=== PATIENT | female | born 1960 | race Caucasian/White ===

== ENCOUNTER 2021-08-18 10:11 | Emergency (ER) | payer OTHER, SELFPAY ==
--- NOTE | ~2021-08-18 | XR_ITS ---
EXAMINATION: XR ankle RT min 3V DATE: 08/18/2021 10:48 INDICATION: Right ankle pain. Injury. TECHNIQUE: 4 views of right ankle were obtained. COMPARISON: None. FINDINGS: Bone alignment is normal. No fracture. Joint spaces are normal. There are enthesophytes at the posterior and plantar aspects of calcaneal tuberosity. There is ankle soft tissue swelling. IMPRESSION: 1. No fracture. Reviewed, dictated and finalized at location A. AT [facility] OFFICER IMPRESSION: 1. No fracture.
[2021-08-18 10:25] VITALS: BP 144/58; PULSE 82; RESP 18; TEMP 36.8; O2SAT 99
--- NOTE | 2021-08-18 10:34 | ED.LOWEXIN ---
HPI - Extremity Injury (Lower) General Chief Complaint: Nausea/Vomiting/Diarrhea Stated Complaint: twisted rt ankle, headache,nausea Time Seen by Provider: 08/18/21 10:35 Source: patient and family Mode of arrival: ambulatory History of Present Illness HPI Narrative: patient injured right ankle two weeks ago and has continued right ankle pain. no new injury patient also has URI symptoms with positive covid exposure MD complaint: ankle injury Injury: Right: ankle Related Data Home Medications Medication Instructions Recorded Confirmed [place] 2 08/18/21 amlodipine 5 mg PO DAILY 08/18/21 08/18/21 atorvastatin 20 mg PO DAILY 08/18/21 08/18/21 cholecalciferol (vitamin D3) 125 mcg PO DAILY 08/18/21 08/18/21 [Vitamin D3] lisinopril 20 mg PO DAILY 08/18/21 08/18/21 metoprolol tartrate 25 mg PO BID 08/18/21 08/18/21 sertraline 100 mg PO DAILY 08/18/21 08/18/21 Allergies Allergy/AdvReac Type Severity Reaction Status Date / Time flu vaccine Allergy Hives Uncoded 08/18/21 10:39 Review of Systems Review of Systems: CONSTITUTIONAL: Denies chills, or sweats. Reports fever and generalized body aches EYES: Denies visual changes, redness, or discharge. ENT: Denies otalgia. Reports nasal congestion runny nose and sore throat CARDIOVASCULAR: Denies chest pain, palpitations, or edema. RESPIRATORY: Denies dyspnea. Reports occasional cough GASTROINTESTINAL: Denies abdominal pain, nausea, vomiting, or diarrhea. GENITOURINARY: Denies dysuria or hematuria. SKIN: Denies rash or itching. MUSCULOSKELETAL: Denies back pain, joint pain, or myalgia. Reports generalized body aches NEUROLOGIC: Denies headache, numbness, or weakness. PSYCHIATRIC: Denies anxiety or depression. PMFSH Comments At time of signature, agree with nursing past medical, surgical, social and family history. There is no relevant family history pertinent to the presenting complaint Exam Narrative: The patient is a well-developed, well-nourished in no acute distress. SKIN: Skin is warm and dry without erythema, swelling or exudate. There is good turgor. No tenting. HEAD: Atraumatic. Normocephalic. No temporal or scalp tenderness. EYES: Moist and bright. Sclera and conjunctivae normal. No discharge. PERRLA. Extraocular motions intact. Gross visual acuity intact. EARS: Pinna is normal shape and contour. Clear external auditory canals. TM pearly monterroso with good cone of light, no erythema or suppuration. Bilateral cerumen noted no gross hearing deficit. NOSE: pink, moist mucosa with good air movement. Clear rhinorrhea without nasal flaring. Septum midline. Mouth: moist mucous membranes. THROAT; mild erythema noted to posterior oropharynx with moderate postnasal drainage. Without exudate or ulceration.. Uvula midline. Normal movement of soft palate. NECK: Supple and nontender with full range of motion without discomfort. No meningeal signs. LUNGS: Equal and bilateral breath sounds without wheezes, rales or rhonchi. CHEST: The chest wall is without retractions or use of accessory muscles. HEART: Has a regular rate and rhythm without murmur, gallops, click or rub. ABDOMEN: Soft, nontender with positive active bowel sounds. No rebound tenderness. EXTREMITIES: Without cyanosis, clubbing or edema. Equal 2+ distal pulses and 2 second capillary refill noted. ANKLE EXAM SKIN INTACT. NORMAL DP PULSE, NORMAL CAP REFILL. NORMAL SENSATION. NEUROLOGIC: alert, active, . The patient moves all extremities with normal muscle strength. Normal muscle tone is noted. Normal coordination is noted. NO focal neurological findings noted. Course Course Level of Care: Express Care Visit Vital Signs Vital signs: Vital Signs Temperature 36.8 C 08/18/21 10:25 Pulse Rate 82 08/18/21 10:25 Respiratory Rate 18 08/18/21 10:25 Blood Pressure 144/58 H 08/18/21 10:25 Pulse Oximetry 99 08/18/21 10:25 Temperature 36.8 C 08/18/21 10:25 Pulse Rate 82 08/18/21 10:25 Respiratory Ra
[2021-08-19 16:23] LABS: SARS-CoV-2 RNA PCR Negative
== END 2021-08-18 11:25 | disposition home or self-care (01) ==
PROVIDERS: Emergency Provider Nurse Practitioner Family
DX: S93.401A Sprain of unspecified ligament of right ankle, initial encounter (principal); X58.XXXA Exposure to other specified factors, initial encounter; J06.9 Acute upper respiratory infection, unspecified; Z20.822 Contact with and (suspected) exposure to COVID-19; E78.00 Pure hypercholesterolemia, unspecified; I10 Essential (primary) hypertension; Z90.722 Acquired absence of ovaries, bilateral
CPT/HCPCS: 73610; 99213; C9803; G0463; U0003; U0005

== ENCOUNTER 2025-06-27 12:33 | Emergency (ER) | payer MEDICARE, MEDICAID, SELFPAY ==
[2025-06-27 12:42] VITALS: BP 135/76; PULSE 78; RESP 20; TEMP 36.5; O2SAT 98
[2025-06-27 13:12] LABS: EDSTREPNEGPOS1 Negative (Negative)
[2025-06-27 13:16] LABS: EDCOVIDSCREEN Negative (Negative)
[2025-06-27 13:17] LABS: EDINFLUASCREEN Negative (Negative); EDINFLUBSCREEN Negative (Negative)
--- NOTE | 2025-06-27 13:36 | ED.URI ---
HPI - URI/Sore Throat General Chief Complaint: Upper Respiratory Infection Stated Complaint: Chest Congestion Time Seen by Provider: 06/27/25 13:15 Source: patient and RN notes reviewed Mode of arrival: ambulatory Limitations: no limitations History of Present Illness HPI Narrative: 65-year-old female patient presents to the [facility] complaining of upper respiratory symptoms for approximately 4 days. Patient reports cough, congestion, chest congestion, voice hoarseness, and body aches. She denies any other upper respiratory symptoms, fevers, chills, sweats, nausea, vomiting, difficulty breathing abdominal pain, chest pain, any other symptoms. Patient took Mucinex without relief. Patient reports a history of breast cancer and lung cancer states she has been remission for 2 years. Related Data Home Medications ?Medication ?Instructions ?Recorded ?Confirmed ?Last Taken ?Type [place] 2 08/18/21 Unknown History atorvastatin 20 mg tablet 20 mg PO DAILY 08/18/21 08/18/21 Unknown History cholecalciferol (vitamin D3) 125 125 mcg PO DAILY 08/18/21 08/18/21 Unknown History mcg (5,000 unit) tablet (Vitamin D3) metoprolol tartrate 25 mg tablet 25 mg PO BID 08/18/21 08/18/21 Unknown History sertraline 100 mg tablet 100 mg PO DAILY 08/18/21 08/18/21 Unknown History apixaban 5 mg tablet (Eliquis) mg 06/27/25 Unknown History glipizide 5 mg tablet mg 06/27/25 Unknown History letrozole 2.5 mg tablet mg 06/27/25 Unknown History magnesium oxide 400 mg (241.3 mg mg 06/27/25 Unknown History magnesium) tablet potassium chloride 10 mEq meq PO 06/27/25 Unknown History tablet,extended release Allergies Allergy/AdvReac Type Severity Reaction Status Date / Time Influenza Virus Vaccines Allergy Hives Verified 06/27/25 13:03 Review of Systems Review of Systems: CONSTITUTIONAL: Denies fever, chills, or sweats. Positive for body aches. EYES: Denies visual changes, redness, or discharge. ENT: Positive for voice hoarseness, congestion, sore throat. Negative for rhinorrhea or otalgia. CARDIOVASCULAR: Denies chest pain, palpitations, or edema. RESPIRATORY: Positive for cough. Negative for dyspnea. GASTROINTESTINAL: Denies abdominal pain, nausea, vomiting, or diarrhea. GENITOURINARY: Denies dysuria or hematuria. SKIN: Denies rash or itching. MUSCULOSKELETAL: Denies back pain, joint pain, or myalgia. NEUROLOGIC: Denies headache, numbness, or weakness. PSYCHIATRIC: Denies anxiety or depression. All other systems reviewed are negative, except as documented in HPI. PMFSH Comments At the time of my signature, I reviewed and agree with the nursing past medical, surgical, social, and family history. There is no relevant family history pertinent to the patient complaint. Exam Narrative: GENERAL: This is a well-nourished, well-developed adult, in no apparent distress. They are non ill-appearing, nontoxic appearing. HEAD: normocephalic, atraumatic. EYES: Sclera clear/white. Vision is grossly intact. Conjunctiva normal bilaterally. Extraocular movements intact. EARS: External ears normal, auditory canals clear and without drainage, TMs without erythema or perforation. Hearing grossly intact. NOSE: External nose normal with no obvious nasal discharge, nasal turbinates erythematous, no rhinorrhea. THROAT: Mucous membranes moist, posterior pharynx erythematous without exudate. Uvula is midline. Postnasal drip present. NECK: Neck supple, non-tender without lymphadenopathy, masses or thyromegaly. CARDIOVASCULAR: Regular rate and rhythm without murmurs, gallops, or rubs. RESPIRATORY: Clear to auscultation. Breath sounds equal bilaterally. No wheezes, rales, or rhonchi. SKIN: warm, Dry, intact with no suspicious lesions or rash, good texture and turgor. NEURO: awake, alert, and oriented to person, place and time. There were no obvious focal neurologic abnormalities. EXTREMITIES: No joint tenderness, effusion, or edema noted. BACK: Nontender without deformity. Course Course Emergency Course: Portions of this record may have been created with voice recognition software Level of Care: Express Care Visit Vital Signs Vital signs: Vital Signs Temperature 97.7 F 06/27/25 12:42 Pulse Rate 78 06/27/25 12:42 Respiratory Rate 20 06/27/25 12:42 Blood Pressure 135/76 06/27/25 12:42 Pulse Oximetry 98 06/27/25 12:42 Oxygen Delivery Room Air 06/27/25 12:42 Temperature 97.7 F 06/27/25 12:42 Pulse Rate 78 06/27/25 12:42 Respiratory Rate 20 06/27/25 12:42 Blood Pressure 135/76 06/27/25 12:42 Pulse Oximetry 98 06/27/25 12:42 Oxygen Delivery Room Air 06/27/25 12:42 MDM - URI/Sore Throat MDM Narrative Medical decision making narrative: Rapid COVID, flu, strep were negative. A throat culture is pending. Symptoms likely viral in etiology. Will give her a course of Medrol Dosepak with voice hoarseness. Discussed physical exam findings. Advised supportive measures and signs/symptoms to go to the ER. Pt is appropriate for outpt treatment and f/u. Differential Diagnosis Differential diagnosis: Likely upper respiratory infection, sinusitis, viral infection, bronchitis and pharyngitis Lab Data Attestation: I reviewed the patient's lab results. Labs: Lab Results 06/27/25 Range/Units 13:00 POC Influenza A Ag Negative (Negative) POC Influenza B Ag Negative (Negative) POC SARS CoV-2 Ag Negative (Negative) POC Grp A Strep Screen Negative (Negative) Discharge Plan Discharge Clinical Impression: Upper respiratory infection Qualifiers: URI type: acute laryngitis Qualified Code(s): J04.0 - Acute laryngitis Patient Disposition: Home Condition: Stable Instructions: Antibiotic Form, Upper Respiratory Infection (ED) Additional Instructions: Your rapid COVID, flu, rapid strep swab was negative today at [facility]. You will be notified in a few days if the culture comes back positive for strep, and appropriate antibiotics will be called in for you at that time. Your symptoms are likely due to a viral illness, which is not treated with antibiotics. Viral symptoms can be present for up to 7-10 days. Take ibuprofen as needed for fever or pain. Follow instructions on the bottle. Take Medrol Dosepak as directed. Rest and stay hydrated. Follow up with your PCP in 3-5 days if symptoms are not improving. Go to the ER immediately if you developed chest pains, unable to talk in full sentences, breathing problems, difficulty breathing or swallowing, vomiting, fevers, or any serious concerns. Patient Language: [place] Prescriptions: New methylprednisolone 4 mg tablets,dose pack See Rx Instructions .ROUTE .COMPLEX Qty: 21 0RF Rx Instructions: for 6 days No Action potassium chloride 10 mEq tablet extended release PO magnesium oxide 400 mg (241.3 mg magnesium) tablet letrozole 2.5 mg tablet glipizide 5 mg tablet Eliquis 5 mg tablet atorvastatin 20 mg tablet 20 mg PO DAILY sertraline 100 mg tablet 100 mg PO DAILY metoprolol tartrate 25 mg tablet 25 mg PO BID cholecalciferol (vitamin D3) [Vitamin D3] 125 mcg (5,000 unit) Tablet 125 mcg PO DAILY [place] 2 Follow-up/Referrals: Claudia,SURINDER Alex [Primary Care Provider, Unknown] Time of Disposition: 13:34
--- OUTSIDE RECORDS SUMMARY | 2025-06-27 21:38 | XMS_ITS | Clinical Summary ---
Author Organization [facility] Address [address] [place] [address] Care Team Providers Care Floor Covering Layer Name Role Phone Unavailable Primary Care Provider Unavailabl e Source Comments [facility],non-owned Affiliates and Associated Physician Practices is amultiple site organization consisting of ambulatory clinics and hospital sitesin [place] and [place]. This disclosure is being madepursuant to the Care Everywhere program and may not contain all information available regarding this patient. Last updated [address].[facility] Allergies Active Allergy Reactions Criticality Noted Date Comments Buspirone Nausea and/or Vomiting Medium 06/11/2016 Influenza Vaccines Diarrhea,Vomiting Medium 09/08/2017 Medications * Be aware that medications may not be up to date on this document. Alwaysverify current medications with the patient. amLODIPine (NORVASC) 5 MG tablet Take 5 mg by mouth 8 Active atorvastatin (LIPITOR) 10 MG tablet TAKE 1 TABLET BY MOUTH ONCE DAILY IN THE EVENING 8 Active [place]-3 1000 MG Take 1,000 mg by mouth Active Cholecalciferol (VITAMIN D-3) 1000 UNITS Active lisinopril (PRINIVIL; ZESTRIL) 20 MG tablet Take 20 mg by mouth 8 Active sertraline (ZOLOFT) 50 MG tablet Take 50 mg by mouth 8 Active propranolol (INDERAL) 10 MG tablet Take 10 mg by mouth 8 Active albuterol HFA (PROVENTIL;VENT CORNELL;PROAIR) 108 (90 BASE) MCG/ACT inhaler Inhale 2 puffs by mouth every 6 hours as needed for Shortness of Breath, Wheezing or Cough 1 Inhaler 8 Active benzonatate (TESSALON) 200 MG capsule Take 1 capsule by mouth 3 times daily as needed for Cough 30 capsule 8 Active Social History Tobacco Use Types Packs/Day Years Used Date Smoking Tobacco: Never Assessed Comments Unknown Sex and Gender Information Value Date Recorded Sex Assigned at Not on file Legal Sex Female 10:47 AM CDT Gender Identity Not on file Sexual Orientation Not on file Last Filed Vital Signs Vital Sign Reading Time Taken Comments Blood Pressure 126/82 04/22/2018 11:03 AM CDT Pulse 98 04/22/2018 11:03 AM CDT Temperature 37.1 C (98.8 F) 04/22/2018 11:03 AM CDT Respiratory Rate - - Oxygen Saturation 95% 04/22/2018 11:03 AM CDT Inhaled Oxygen Concentration - - Weight 90.7 kg (200 lb) 04/22/2018 11:03 AM CDT Height 165.1 cm (5' 5) 04/22/2018 11:03 AM CDT Body Mass Index 33.28 04/22/2018 11:03 AM CDT Plan of Treatment Health Maintenance Due Date Last Done Comments BONE DENSITY TESTING 1960 COLOGUARD (AGES 45-75) - COL ON CA SCREENING 1960 COLON MONITORING 1960 COLONOSCOPY - COLON CA SCREENING 1960 CT COLONOGRAPHY - COLON CA SCREENING 1960 Colorectal Cancer Screening 1960 FIT - COLON CA SCREENING 1960 FLEX SIG - COLON CA SCREENING 1960 MAMMOGRAM 1960 MEDICARE AWV 12 MONTHS 1960 HIV SCREENING 02/27/1975 HEPATITIS C SCREENING 02/23/1978 DTAP/TDAP/TD VACCINES (1 - Tdap) 02/27/1979 PAP with HPV 02/27/1990 PNEUMOCOCCAL VACCINE 50+ (1 of 1 - PCV) 02/27/2010 ZOSTER VACCINE (1 of 2) 02/27/2010 SCREENING FOR DIABETES 04/22/2018 Cervical Cancer Screening 01/23/2021 PAP SMEAR 01/23/2021 01/23/2018, 01/23/2018 DEPRESSION SCREENING 08/11/2024 COVID-19 VACCINE (3 - 2024-2 6 season) 2025 04/22/2021, 04/01/2021 INFLUENZA VACCINE (#1) 2025 05/23/2009 Respiratory Syncytial Virus (RSV) Vaccine Pt: or over 60 yrs (1 - 1-dose 75+ series) 02/27/2035 HEPATITIS B VACCINE Aged Out No longe r eligible based on patient's age to complete this topic HIB VACCINE Aged Out No longer eligi ble based on patient's age to complete this topic HPV VACCINE Aged Out No longer eligi ble based on patient's age to complete this topic MENINGOCOCCAL (Group B) VACCINE SHARED DECISION-MAKING Aged Out No longer eligible based on patient's age to complete this topic MENINGOCOCCAL GROUPS A/C/Y/W VACCINE Aged Out No longer eligible b ased on patient's age to complete this topic Insurance MEDICAID - [place] MEDICARE
== END 2025-06-27 13:40 | disposition home or self-care (01) ==
PROVIDERS: PCP Physician Assistant
DX: J04.0 Acute laryngitis (principal); Z20.822 Contact with and (suspected) exposure to COVID-19; I10 Essential (primary) hypertension; E78.00 Pure hypercholesterolemia, unspecified; Z85.3 Personal history of malignant neoplasm of breast; Z85.118 Personal history of other malignant neoplasm of bronchus and lung
CPT/HCPCS: 87081; 87426; 87804; 87880; 99213; G0463